=== PATIENT | female | born 1975 | race Hispanic/Latino ===

== ENCOUNTER 2023-12-26 21:54 | Emergency (ER) | payer BC ==
[~2023-12-26] VITALS: Ht 165.1 cm; Wt 83.9 kg
[~2023-12-26 21:54] MED LIST: ATORVASTATIN CA10 MG PO; METFORMIN HCL850 MG PO
[2023-12-26 21:59] VITALS: PULSE 74; RESP 20; TEMP 98.3; O2SAT 100
== END 2023-12-26 22:05 | disposition home or self-care (01) ==
LOC: ER 22:00
DX: R04.0 Epistaxis (principal); Z77.028 Contact with and (suspected) exposure to other hazardous aromatic compounds; E11.9 Type 2 diabetes mellitus without complications
CPT/HCPCS: 99282